=== PATIENT | female | born 1935 | race Caucasian/White ===

== ENCOUNTER 2016-12-13 22:58 | Inpatient (IN) | payer OTHER ==
--- NOTE | ~2016-12-13 | CT72 ---
[facility] A Service [facility] RADIOLOGY TEXT RESULTS PATIENT: GORDON PATEL LOCATION: CEDOF : 37 UNIT #: [id number] AGE: [address]: Inocencia Quijano MD SEX: F ORDER DR: [id number] [facility] [address] [place], [place] [address] [id number] I MR#: [id number] Acc #: [id number] NAME: GORDON PATEL : 1935 SEX: F STUDY DATE/TIME: 12/13/2016 21:46 UNIT: CEDOF ROOM: 19713 STUDY DESCRIPTION: CT Head Wo Contrast Stroke Attending Physician: Inocencia Quijano M.D. Ordering Physician: José Antonio Ivory M.D. Primary Care Physician: Ruperto Hoyos M.D. MEDICAL IMAGING REPORT This report is preliminary unless electronic signature is present EXAM CT brain without contrast. HISTORY Left side weakness and numbness today. TECHNIQUE NOTE: This CT exam was performed with one or more of the following radiation dose reduction techniques: automatic exposure control, adjustment of mA and/or kV according to patient size, and iterative reconstruction. FINDINGS CT brain without contrast demonstrates no intracranial hemorrhage, mass or edema. No midline shift or ventricular dilatation or extraaxial fluid collection. Bhzj-jf-aspufvje chronic ischemic changes in the deep white matter bilaterally. Small chronic lacunar infarcts in the basal ganglia. Small chronic infarct in the posterior left occipital lobe. Extensive mucosal thickening in the right maxillary sinus. IMPRESSION 1. No acute findings. 2. Yqdo-tj-dprgdexi chronic ischemic changes in the deep white matter bilaterally and small chronic bilateral basal ganglia lacunar infarcts. 3. Extensive mucosal thickening in the right maxillary sinus. Dictated by... Kenneth Holder M.D. [facility] A Service [facility] RADIOLOGY TEXT RESULTS PATIENT: GORDON PATEL LOCATION: CEDOF : 37 UNIT #: [id number] AGE: [address]: Inocencia Quijano MD SEX: F ORDER DR: THIS IS AN ELECTRONICALLY VERIFIED REPORT Kenneth Samia Holder M.D. at 12/14/2016 11:10 PM FATOU/susan TD: 12/13/2016 22:23 JOB #: [id number] MEDICAL IMAGING REPORT Page 1 of 1 COPY
--- NOTE | ~2016-12-13 | CT71 ---
[facility] A Service of [facility] RADIOLOGY TEXT RESULTS PATIENT: GORDON PATEL LOCATION: [facility] 324-01 : 37 UNIT #: [id number] AGE: [address]: Inocencia Quijano MD SEX: F ORDER DR: [id number] [facility] [address] [place], [place] [address] [id number] I MR#: [id number] Acc #: [id number] NAME: GORDON PATEL. : 1935 SEX: F STUDY DATE/TIME: 12/14/2016 23:26 UNIT: [address] ROOM: [facility] STUDY DESCRIPTION: CT Head Wo Contrast Attending Physician: Inocencia Quijano M.D. Ordering Physician: Lilly Garcia M.D. Primary Care Physician: Ruperto Hoyos M.D. MEDICAL IMAGING REPORT This report is preliminary unless electronic signature is present EXAM CT head, noncontrast, 12/14/2016. HISTORY 81-year-old female admitted through the ED yesterday with clinical stroke symptoms. Left side weakness, facial droop. Exam today for followup. TECHNIQUE CT examination of the head without IV contrast. This CT exam was performed with one or more of the following radiation dose reduction techniques: automatic control, adjustment of mA and/or kV according to patient size, and iterative reconstruction. FINDINGS No acute intracranial abnormality is demonstrated. Patchy low-attenuation white matter changes are nonspecific but likely related to chronic microvascular disease. Old lacunar infarct in the right lentiform nucleus. Small chronic posterior cortical infarct in the left occipital lobe. These findings are stable since yesterday. No evidence of intracranial hemorrhage, mass, mass effect, acute cerebral edema or hydrocephalus. Fluid and mucosal thickening within the right maxillary sinus and mild mucosal thickening in the ethmoid sinuses. IMPRESSION 1. No acute intracranial abnormality. 2. Diffuse chronic changes as noted above. 3. No change since yesterday. Dictated by... Blake Garcia M.D. [facility] A Service [facility] RADIOLOGY TEXT RESULTS PATIENT: GORDON PATEL LOCATION: [facility] 324-01 : 37 UNIT #: [id number] AGE: [address]: Inocencia Quijano MD SEX: F ORDER DR: THIS IS AN ELECTRONICALLY VERIFIED REPORT Blake Garcia M.D. at 12/15/2016 9:51 PM SUSANNA/raul TD: 12/15/2016 00:19 JOB #: [id number] MEDICAL IMAGING REPORT Page 1 of 1 COPY
--- NOTE | ~2016-12-13 | HP ---
Unit #: [id number] #: [id number] Patient: GORDON PATEL [id number] [address] [address] [id number] I MR#: [id number] NAME: GORDON PATEL ROOM: 21872 Age: 81 Sex: F Admission Date: 12/14/2016 : 1935 Attending Physician: Inocencia Quijano M.D. Primary Care Physician: Ruperto Hoyos M.D. HISTORY AND PHYSICAL REASON FOR ADMISSION CVA. HISTORY OF PRESENT ILLNESS The patient is a 81-year-old female who, 40 minutes prior to being evaluated in the emergency room, began developing left-sided weakness as well as left-sided facial droop. She was seen and evaluated in the emergency room and, after extensive review and discussion with Dr. Garcia, the patient actually received TPA through the night. Initial NIH score was 10 with minor left facial droop, left arm, left leg as well as ataxia times two limbs and slurred speech. The patient received TPA after evaluation and discussion with Dr. Garcia. At the present time, the patient is currently comfortable. She does have some residual facial droop but she currently denies pain. PAST MEDICAL HISTORY Recent ventral hernia repair, December 03, 2016, syncope, history of Downs, chronic lung disease on two liters home O2 followed by Dr. Reis, hypertension, hypothyroidism, hysterectomy, recent hospital admission, December 06, 2016, secondary to dyspnea, type 2 diabetes, hyperlipidemia, chronic osteoarthritis, GERD. PAST SURGICAL HISTORY Tubal ligation, left knee replacement, right knee replacement, cholecystectomy. SOCIAL HISTORY The patient resides at home. No alcohol use. No tobacco use. No illicit drug use. FAMILY HISTORY Reviewed, noncontributory, nonpertinent. ALLERGIES Codeine, aspirin. HOME MEDICATIONS 1. Ramipril. 2. Hydrochlorothiazide. 3. Lipitor. 4. Pravastatin. Unit #: [id number] #: [id number] Patient: GORDON PATEL 5. Naproxen. 6. Metformin. 7. Carvedilol. 8. Clonidine. REVIEW OF SYSTEMS Please see HPI. Twelve point otherwise negative except for those positive noted in the HPI. PHYSICAL EXAMINATION GENERAL APPEARANCE: A 81-year-old female morbidly obese lying comfortably. Residual facial droop noted. No acute distress. VITAL SIGNS: Temperature 98.5. Pulse 73. Respiratory rate 20. Blood pressure 136/39. HEENT: Head: Atraumatic. Pupils equal, round and reactive to light. NECK: Supple. No JVD or carotid bruit. CARDIOVASCULAR: S1, S2 without murmur. RESPIRATORY: Clear. GASTROINTESTINAL/ABDOMEN: Nontender, nondistended. EXTREMITIES: Lower extremities nontender. No edema. NEUROLOGIC: Alert and oriented x4. No evidence of any focal nerve deficits. Cranial nerves II-XII: Facial palsy noted. Left facial droop noted. PSYCHIATRIC: Patient demonstrates normal mood and affect. DIAGNOSTIC STUDIES LABORATORY: Lactic acid 1.0. Initial urinalysis: 3+ protein, 1+ urobilinogen, otherwise, unremarkable. BMP: BUN 32, glucose 184, otherwise, unremarkable. LFTs normal. IMAGING: CT head without contrast stroke protocol shows mild to moderate chronic ischemic changes deep white matter bilaterally, chronic bilateral basal ganglia lacunar infarcts. CT angiogram head stroke protocol shows minimal plaque in both carotid bifurcations. Initial chest x-ray: Mild cardiomegaly. INITIAL ADMISSION DIAGNOSES 1. Left-sided weakness, probable acute CVA status post TPA. 2. Morbid obesity. 3. Hypertension. 4. Ataxia. 5. Diabetes history. 6. Immobility. PLAN Admission ICU secondary to TPA protocol which may be discontinued later on tonight at 2300 then telemetry floor. MRI/MRA brain pending. Stroke protocol initiated. Workup in progress per Dr. Garcia. Lipid profile including embolic workup may be needed in a.m. including echocardiogram/NIDHI. Symptom management including PT, OT evaluation and possible rehab placement pending above evaluation and further hospital course. Plans have been reviewed with patient as well as her daughter present at bedside. Dictated by Inocencia Quijano M.D. Unit #: [id number] #: [id number] Patient: GORDON PATEL ISN/bd TD: 12/14/2016 18:39 JOB #: [id number] HISTORY AND PHYSICAL Page 1 of 1 X Inocencia Quijano MD X HISTORY AND PHYSICAL
--- NOTE | ~2016-12-13 | CO ---
Unit #: [id number] #: [id number] Patient: GORDON PATEL [id number] [address] [place], [place] [address] [id number] Adams MR#: [id number] NAME: GORDON PATEL ROOM: 325 Age: 81 Sex: F Admission Date: 12/14/2016 : 1935 Attending Physician: Inocencia Quijano M.D. Primary Care Physician: Ruperto Hoyos M.D. Consultation Date: 12/14/2016 CONSULTATION REPORT ADDITIONAL REFERRING PHYSICIAN José Antonio Ivory M.D., ER physician. PRIMARY CARE PHYSICIAN Ruperto Hoyos M.D. REASON FOR CONSULTATION Stroke, post alteplase. PATIENT IDENTIFICATION This is a 81-year-old, right-handed white female, who is evaluated in room 225 in the ER and also via the [employer] robot. SOURCE OF INFORMATION The patient, family, and discussion with Dr. Ivory. PROBLEM LIST Based on previous records. 1. Hypertension. 2. Diabetes. 3. Possible GERD. 4. Tubal ligation. 5. Left knee replacement. 6. Right knee replacement. 7. Gallbladder surgery. 8. Hyperlipidemia. 9. Arthritis. HISTORY OF PRESENT ILLNESS This is a very pleasant 81-year-old right-handed white female, who actually came to the emergency room yesterday at 2138 hours. She was a code stroke. She came via EMS and the last time normal was around 9:00 p.m. Immediately code stroke was called and I was informed and I got on online and I saw the patient. The patient had measurable left-sided deficit. No any problem initially. Her blood pressure was very low, so we were looking to make sure there is no other reason for that and once a CT was done, she was given a bolus of fluids and CTA was done and it was decided to go for tPA. The case was discussed with the family via the nurses. There was concern about CTA quality. I did look at the images and distally the flow was okay and the patient was coughing, so it was supposed to be repeated. Unit #: [id number] #: [id number] Patient: GORDON PATEL The patient has significant left-sided weakness and unfortunately she has not improved much. Please refer to evaluation in documentation at appropriate places. No seizures. No migraines. No change in medication or other issues. No falls or injuries. I do not think anything has changed lately. PAST MEDICAL HISTORY As discussed above. PAST SURGICAL HISTORY As discussed above. ALLERGIES Codeine and aspirin. HOME MEDICATIONS Ramipril 10 mg, hydrochlorothiazide 25 mg, Lipitor 40 mg, pravastatin 40 mg, Naprosyn 500 mg b.i.d., metformin 850 mg p.o. b.i.d., carvedilol 25 mg p.o. b.i.d., clonidine. FAMILY HISTORY Coronary artery disease. SOCIAL HISTORY Apparently per records, the patient is . Denies tobacco, alcohol, or drug use. REVIEW OF SYSTEMS Mostly as discussed in history of present illness. No recent weight issues, fever, chills, rigor, or sweats. HEENT: No headaches. No double vision, earache, runny nose, or sore throat. CARDIOVASCULAR: No chest pain, clubbing, cyanosis, orthopnea, or palpitation. PULMONARY: No shortness of air, cough, or expectoration. GASTROINTESTINAL: No nausea, vomiting, diarrhea, or constipation. GENITOURINARY: No genitourinary symptom. EXTREMITIES: Extremity problems as discussed. BACK: No back problem. PSYCHIATRIC: No psychotic issue. NEUROLOGIC: Issue as discussed. No other hematologic, dermatologic, or endocrine problems known to me. PHYSICAL EXAMINATION VITAL SIGNS: Temperature 97.6, pulse 61, respirations 17, blood pressure 146/55, weight of 175 pounds. NEUROLOGIC: The patient is awake. She is alert. She is oriented. She can name. She can follow commands. No right or left confusion. No finger agnosia. Unit #: [id number] #: [id number] Patient: GORDON PATEL Cranial nerve examination demonstrates full reagan of vision to confrontation. Eye movements are conjugate. I did not see any ptosis. I did not see any nystagmus. Extraocular movements are intact. Pupils are round, reactive to light, and accommodation. Sensation on the face and scalp was normal. Significant left lower facial weakness. Tongue was midline. I could not visualize her oropharynx or uvula. Hearing was intact. Head turning was spontaneous. Motor examination, she is flaccid on the left side. I really did not see any movement whatsoever except for triple flexion in the left lower extremity. Right side seemed to be at least -5/5. Sensory examination intact for soft touch and pain sensation. It is important to note that she did not have any extinction. I could not get any reflexes. Toes are upgoing on the left side with possible triple flexion. Right side was downgoing. Coordination on the right was okay. Gait could not be evaluated. DIAGNOSTIC STUDIES LABORATORY RESULTS: Personally reviewed. Random glucose was 184, BUN was 32, protein was 5.4, albumin was 2.5. INR was 1.3. White count was 10.5, H and H of 12.1 and 36.9, platelet count was 185. Urinalysis showed nothing suggesting major infection type story. IMAGING STUDIES: Reviewed. IMPRESSION 1. Acute neurologic deficit likely stroke and could be subcortical, could be thrombotic. 2. Her risk factors, her age, hypertension, diabetes, and hyperlipidemia. PLAN I will do for further workup. She is post alteplase. We will do 24 hour protocol and will see how things go. She is not improved much and it is bothersome, but I talked to the daughter and she is very happy with the care and the promptness of everything and will follow our protocol. Please see our orders. Call me for any other questions, issues, or concerns. Further treatment will be based on how she does and what we find especially on the MRI and I will follow her. Dictated by... Sheryl German/clifford TD: 12/15/2016 02:04 JOB #: [id number] Unit #: [id number] #: [id number] Patient: GORDON PATEL CONSULTATION REPORT Page 1 of 1 X Lilly Garcia MD CONSULTATION REPORT
--- NOTE | ~2016-12-13 | DS ---
Unit #: [id number] #: [id number] Patient: GORDON PATEL [id number] [address] [place], [place] [address] [id number] I MR#: [id number] NAME: GORDON PATEL. ROOM: 324 Age: 81 Sex: F Admission Date: 12/14/2016 : 1935 Discharge Date: Attending Physician: Inocencia Quijano M.D. Primary Care Physician: Ruperto Hoyos M.D. DISCHARGE SUMMARY DATE OF ANTICIPATED DISCHARGE December 17, 2016 REASON FOR ADMISSION Acute CVA. HISTORY OF PRESENT ILLNESS/HOSPITAL COURSE The patient is a 81-year-old female initially evaluated in the emergency room with left-sided weakness and facial droop. Neurology consultation was obtained via telemedicine. Patient received TPA while she was in the emergency room. Initial NIH score was 10. Please see History and Physical for complete details. CT head without contrast was negative for acute process. A consultation was placed to neurology services and stroke protocol was initiated. On December 15, 2016, patient underwent MRI brain without contrast which did reveal acute infarcts in the left (1) junction, as well as right frontal lobe. A consultation was placed to Dr. Bolton for NIDHI. Patient was noted to have a grade 4 atheroma which was noted. Neurology services has recommended Lovenox bridge to therapeutic INR on Coumadin. Intense statin medication was also recommended. Secondary to profound weakness on the left side, physical and occupational therapy services both have recommended rehab at time of discharge. [facility] has been consulted. Patient's precertification is currently pending. Once it is cleared, patient will be transferred to [facility] for ongoing care. LDL 96, triglycerides 126, cholesterol 146. FINAL DISCHARGE DIAGNOSES 1. Acute cerebrovascular accident, status post tissue plasminogen activator. 2. Left-sided weakness. 3. 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 Unit #: [id number] #: [id number] Patient: GORDON PATEL 4. Hypothyroidism. 5. Hypertension. 6. Morbid obesity. 7. Type 2 diabetes. 8. Hyperlipidemia. 9. Chronic osteoarthritis. 10. Gastroesophageal reflux disease. FINAL DISCHARGE MEDICATIONS 1. Lovenox 1 mg/kg subcutaneous b.i.d. May discontinue when INR greater than 2. 2. Coumadin 5 mg p.o. daily. 3. Altace 10 mg p.o. daily. 4. Hydrochlorothiazide 25 mg p.o. daily. 5. Coreg 25 mg p.o. b.i.d. 6. Clonidine 0.3 mg p.o. b.i.d. 7. Lipitor 80 mg p.o. at bedtime. 8. Diflucan 150 mg p.o. daily. 9. Nystatin powder to affected areas. 10. Insulin NovoLog low-dose sliding scale with Accu-Cheks q.a.c. and at bedtime. 11. Levemir 8 units subcutaneous at bedtime. DISCHARGE CONDITION Stable. [facility]. Dictated by... Sheryl Anne/michele TD: 12/17/2016 21:24 JOB #: [id number] DISCHARGE SUMMARY Page 1 of 1 X Inocencia Quijano MD X DISCHARGE SUMMARY
--- NOTE | ~2016-12-13 | EKG ---
PATIENT: GORDON PATEL UNIT #: [id number] Ventricular Rate: 75 BPM Atrial Rate: 75 BPM P-R Interval: 240 ms QRS Duration: 152 ms Q-T Interval: 470 ms QTC Calculation(Bezet): 524 ms P [place]: 91 degrees Calculated R [place]: -59 degrees Calculated T [place]: 131 degrees Diagnosis Line: Sinus rhythm with 1st degree A-V block Diagnosis Line: Left axis deviation Diagnosis Line: Left bundle branch block Diagnosis Line: Abnormal ECG Diagnosis Line: When compared with ECG of 16-JUN-2009 09:29, Diagnosis Line: Fusion complexes are no longer Present Diagnosis Line: Premature atrial complexes are no longer Present Diagnosis Line: HI interval has increased Diagnosis Line: T wave inversion more evident in Lateral leads Diagnosis Line: Confirmed by STEPH ELENA, MERRY ([id number]) on 12/14/2016 Diagnosis Line: 6:30:33 PM INTERPRETING MD: STEPH ELENA
--- NOTE | ~2016-12-13 | CT18 ---
[facility] A Service of [facility] & [facility] RADIOLOGY TEXT RESULTS PATIENT: GORDON PATEL LOCATION: CEDOF 96803-04 : 37 UNIT #: [id number] AGE: [address]: Inocencia Quijano MD SEX: F ORDER DR: [id number] [facility] [address] [place], [place] [address] [id number] I MR#: [id number] Acc #: [id number] NAME: GORDON PATEL : 1935 SEX: F STUDY DATE/TIME: 12/13/2016 21:54 UNIT: CEDOF ROOM: 11282 STUDY DESCRIPTION: CT Angio Head Stroke Attending Physician: Inocencia Quijano M.D. Ordering Physician: José Antonio Ivory M.D. Primary Care Physician: Ruperto Hoyos M.D. MEDICAL IMAGING REPORT This report is preliminary unless electronic signature is present EXAM Head and neck CT angiogram 12/13/2016 HISTORY Left side weakness/numbness with inability to move for 40 minutes prior to arrival. Patient last seen normal at 9 p.m. TECHNIQUE Axial images were obtained through the head and neck following the IV administration of contrast. 3-D reformats were obtained. The study was repeated due to patient motion. No comparison CTA. FINDINGS Within the neck the vertebral arteries are codominant and widely patent. Minimal plaque is seen at the carotid bifurcations, but there is 0% stenosis by NASCET criteria. There is no evidence of carotid or vertebral dissection. Intracranially there is some atherosclerotic calcification in the carotid siphons, but there is no evidence of stenosis by NASCET criteria. No aneurysm is identified. There are bilateral origin exhibits coordinator. There is probably some mild atherosclerotic disease in the exhibits coordinator, but no significant stenosis is seen. The basilar artery is fairly normal in caliber and slightly irregular. The smaller caliber may be due to the anterior dominant circulation, but some component of atherosclerotic disease is also likely present. The major dural venous sinuses are patent. There is no evidence of a vascular malformation. There is degenerative disease in the cervical spine. There is some mucosal thickening in the right maxillary sinus. IMPRESSION 1. Minimal plaque in both carotid bifurcations. No evidence of stenosis in the neck by NASCET criteria. No carotid or vertebral dissection. 2. Intracranially, no focal flow limiting stenosis by NASCET criteria is STS. [facility] A Service of [facility] & [facility] RADIOLOGY TEXT RESULTS PATIENT: GORDON PATEL LOCATION: [facility] [address]7485-99 : 37 UNIT #: [id number] AGE: [address]: Inocencia Quijano MD SEX: F ORDER DR: seen, there is no vessel cut off. No aneurysm is seen or vascular malformation. There are bilateral origin exhibits coordinator. Slight irregularity of both exhibits coordinator as well as the basilar artery may be due to atherosclerotic disease, but again no focal significant lesions are seen. Dictated by... Romaine Patel Jr., M.D. THIS IS AN ELECTRONICALLY VERIFIED REPORT Romaine Patel Jr., M.D. at 12/14/2016 2:29 PM DIMPLE/breanna TD: 12/14/2016 08:10 JOB #: [id number] MEDICAL IMAGING REPORT Page 1 of 1 COPY
--- NOTE | ~2016-12-13 | CR72 ---
[facility] A Service of [facility] & [facility] RADIOLOGY TEXT RESULTS PATIENT: GORDON PATEL [facility] UNIT #: [id number] AGE: [address]: Inocencia Quijano MD SEX: F ORDER DR: [id number] [facility] [address] [place], [place] [address] [id number] MR#: [id number] Acc #: [id number] NAME: GORDON PATEL. : 1935 SEX: F STUDY DATE/TIME: 12/13/2016 22:28 UNIT: [facility] ROOM: STUDY DESCRIPTION: CR Chest Single View Portable Attending Physician: José Antonio Ivory M.D. Ordering Physician: José Antonio Ivory M.D. Primary Care Physician: Ruperto Hoyos M.D. MEDICAL IMAGING REPORT This report is preliminary unless electronic signature is present EXAM Chest x-ray 12/13/2016 HISTORY 81-year-old female complaining of shortness of air and weakness beginning today. TECHNIQUE AP portable chest x-ray. FINDINGS The examination shows mild cardiomegaly. Mild diffuse pulmonary interstitial prominence suggesting potential mild vascular congestion. No comparison studies here. Infiltrate or atelectasis in the left lateral lung base. Old ununited left proximal humerus fracture. Low lung volumes. IMPRESSION Mild cardiomegaly. Possible mild vascular congestion. Shallow lung expansion. Dictated by... Blake Garcia M.D. THIS IS AN ELECTRONICALLY VERIFIED REPORT Blake Garcia M.D. at 12/14/2016 5:57 AM SUSANNA/raul TD: 12/13/2016 23:33 JOB #: [id number] MEDICAL IMAGING REPORT Page 1 of 1 COPY
--- NOTE | ~2016-12-13 | CO ---
Unit #: [id number] #: [id number] Patient: GORDON PATEL [id number] [address] [place], [place] [address] [id number] MR#: [id number] NAME: GORDON PATEL ROOM: 02532 Age: 81 Sex: F Admission Date: 12/14/2016 : 1935 Attending Physician: Inocencia Quijano M.D. Primary Care Physician: Ruperto Hoyos M.D. CONSULTATION REPORT REASON FOR CONSULTATION Critical care management. CHIEF COMPLAINT Left-sided weakness. HISTORY OF PRESENT ILLNESS This patient has a past medical history of gastritis, type 2 diabetes, hypertension, likely obstructive sleep apnea, who presents with the complaint of left-sided weakness. It started last night and the patient has been admitted with impression of stroke. I am seeing the patient at bedside, currently awake, alert, denies any headache, blurry vision. No chest pain. The patient has left-sided weakness. PAST MEDICAL HISTORY Hypertension, diabetes mellitus. PAST SURGICAL HISTORY Bilateral knee replacement, tubal ligation. SOCIAL HISTORY Nonsmoker. No alcohol. No drug abuse. ALLERGIES Aspirin, codeine. Allergies have been reviewed. MEDICATIONS As per MAR, has been reviewed. PHYSICAL EXAMINATION VITAL SIGNS: Temperature 98. Pulse 87. Respiration 12. Blood pressure 130/70. NEUROLOGIC: Awake, alert, oriented. No neuro deficit. HEENT: PERRLA. NECK: Supple. No JVD. CHEST: Bilateral air entry. Bilateral mild rhonchi. GASTROINTESTINAL: Nontender. Soft. Bowel sounds positive. EXTREMITIES: No edema. NEUROLOGIC: She has a positive left-sided, left upper arm and left lower extremity weakness. DIAGNOSTIC STUDIES IMAGING: CT head showed no acute infiltrate. CT angio of the head was also done which showed minimal plaque in the carotid bifurcation. Chest Unit #: [id number] #: [id number] Patient: GORDON PATEL x-ray on admission showed mild cardiomegaly. ASSESSMENT AND PLAN Left-sided weakness, acute stroke, hypertension, diabetes mellitus, likely obstructive sleep apnea and plan is to admit the patient. Neuro check q.4 hours and Neurology consult, aspiration precaution, (1) blood pressure, GI and DVT prophylaxis. We will continue to monitor, keep NPO, swallow evaluation. I would like to thank you for your kind consideration to involve me in taking care of this patient. Dictated by... Sheryl Ruiz TD: 12/14/2016 18:03 JOB #: [id number] CONSULTATION REPORT Page 1 of 1 X Dorita Carmichael MD X CONSULTATION REPORT
--- NOTE | ~2016-12-13 | MR18 ---
[facility] A Service of [facility] RADIOLOGY TEXT RESULTS PATIENT: GORDON PATEL LOCATION: [facility] 324- : 37 UNIT #: [id number] AGE: [address]: Inocencia Quijano MD SEX: F ORDER DR: [id number] [facility] [address] [facility]. [place], [place] [address] [id number] I MR#: [id number] Acc #: [id number] NAME: OGRDON PATEL : 1935 SEX: F STUDY DATE/TIME: 12/15/2016 9:48 UNIT: [id number] PCU ROOM: [facility] STUDY DESCRIPTION: MR Brain Wo Contrast Attending Physician: Inocencia Quijano M.D. Ordering Physician: Lilly Garcia M.D. Primary Care Physician: Ruperto Hoyos M.D. MRI CENTER REPORT This report is preliminary unless electronic signature is present. EXAM MRI brain without contrast INDICATIONS Sudden onset left arm and left side weakness and facial droop on 12/13/2016. TPA administered 2100 hours on 12/13/2016. Follow up. PROCEDURE Multiplanar, multisequence MR imaging of the brain without administration of contrast. COMPARISON CT from 12/14/2016 FINDINGS Diffusion weighted imaging shows a 2.5 cm acute or early subacute infarct in the left parietooccipital junction. There is a 3.1 cm cortical based infarct in the high posteromedial right frontal lobe. There is no evidence for hemorrhage, significant mass effect, extraaxial collection or hydrocephalus. Background of moderately severe chronic small vessel ischemic change. Flow voids and major intracranial vessels are intact. Mucosal thickening right maxillary sinus. IMPRESSION 1. Acute or early subacute infarcts in the left parietooccipital junction and the right frontal lobe as above. There is no hemorrhage or significant mass effect. 2. Background of chronic small vessel ischemic change. Dictated by... Enmanuel Hall M.D. [facility] A Service [facility] RADIOLOGY TEXT RESULTS PATIENT: GORDON PATEL LOCATION: [facility] 324- : 37 UNIT #: [id number] AGE: [address]: Inocencia Quijano MD SEX: F ORDER DR: THIS IS AN ELECTRONICALLY VERIFIED REPORT Enmanuel Hall M.D. at 12/16/2016 9:42 AM Gabrielle TD: 12/15/2016 12:49 JOB #: [id number] MRI CENTER REPORT Page 1 of 1 COPY
[2016-12-13 22:10] LABS: POC - GFR >60.0 mL/min (>60)
[2016-12-13 22:36] LABS: BASOPHIL% 0.4 % (0-2.5); EOSINOPHIL# 0.2 X10e3 (0-0.7); EOSINOPHIL% 1.8 % (0.0-7.0); HEMATOCRIT 36.9 % (35.0-45.0); HEMOGLOBIN 12.1 gm/dL (12.0-16.0); LYMPHOCYTE% 9.8 % (17.0-45.0); MEAN CELL VOLUME 87.8 FL (83-96); MEAN CORPUSCULAR HEMOGLOBIN 28.9 PG (28-34); MEAN CORPUSCULAR HGB CONC 32.9 g/dL (30-36); MONOCYTE# 1.1 X10e3 (0-1.0); MONOCYTE% 10.4 % (3.0-12.0); NEUTROPHIL# 8.1 X10e3 (1.5-7.1); NEUTROPHIL% 77.6 % (40-75); PLATELET COUNT 185 X10e3 (140-420); RED CELL DISTRIBUTION WIDTH 13.9 % (11.0-15.5); WHITE BLOOD COUNT 10.5 X10e3 (4.0-10.5)
[2016-12-13 22:38] LABS: DIFF IND NO
[2016-12-13 22:50] LABS: INR 1.3; PARTIAL THROMBOPLASTIN TIME 25.2 SECONDS (23.5-31.3); PROTHROMBIN TIME (PATIENT) 13.3 SECONDS (9.6-11.5)
[2016-12-13 22:58] LABS: ALBUMIN SERUM 2.5 g/dL (3.5-5.0); BILIRUBIN, DIRECT 0.2 mg/dL (0.0-0.2); BILIRUBIN,INDIRECT 0.8 mg/dL (0.0-0.9); BUN/CREATININE RATIO 45.71; CALCIUM SERUM 7.8 mg/dL (8.4-10.2); CREATININE SERUM 0.7 mg/dL (0.6-1.4); GLOM FILT RATE Estimated 82.4 mL/min (>60); POTASSIUM 4.1 mmol/L (3.5-5.1); PROTEIN TOTAL SERUM 5.4 g/dL (6.0-8.3)
[~2016-12-13 22:58] MED LIST: ACTOS PO; CIPRO PO; CLONIDINE PO; CLONIDINE TOP; DYAZIDE 37.5/251 CAP PO; INDERAL LA PO; LISINOPRIL PO; LORTAB 5/500 TA1 TA1 PO; PHENERGAN PO; PROTONIX PO
[2016-12-13] MEDS ORDERED: RAMIPRIL10 MG PO (23:30)
[2016-12-13 23:31] LABS: URINE SOURCE CLEAN CATCH
[2016-12-13] MEDS ORDERED: HYDROCHLOROTHIA25 MG PO (23:31)
[2016-12-13] MEDS ORDERED: LIPITOR40 MG PO (23:31)
[2016-12-13] MEDS ORDERED: PRAVASTATIN SOD40 MG PO (23:31)
[2016-12-13] MEDS ORDERED: NAPROSYN500 MG PO (23:32)
[2016-12-13] MEDS ORDERED: METFORMIN HCL850 MG PO (23:39)
[2016-12-13 23:40] LABS: URINE APPEARANCE CLEAR; URINE BILIRUBIN NEG (NEG); URINE BLOOD NEG (NEG); URINE COLOR DK YELLOW; URINE GLUCOSE NEG (NEG); URINE KETONE TRACE (NEG); URINE LEUKOCYTE ESTERASE NEG (NEG); URINE NITRATE NEG (NEG); URINE PROTEIN 3+ (NEG); URINE SPECIFIC GRAVITY 1.042 (1.003-1.035)
[2016-12-13] MEDS ORDERED: CARVEDILOL25 M1 PO (23:40)
[2016-12-13] MEDS ORDERED: CLONIDINE HCL0.3 MG PO (23:40)
[2016-12-13 23:43] LABS: URINE BACTERIA AUWI NEG (NEGATIVE); URINE SQUAMOUS EPITHELIAL CELL OCC /[HPF]; UWBCS1 AUWI 0-2 (0-5)
[2016-12-13 23:53] LABS: CULTURE INDICATED? NO; URINE GRANULAR CAST 0-2 /[HPF]; URINE MUCUS PRESENT
[2016-12-15 01:18] LABS: CHOLESTEROL 146 mg/dL (0-200); HDL CHOLESTEROL 25 mg/dL (35-95); LDL CHOLESTEROL 96 mg/dL ([, -130]); LDL/HDL RATIO 4 RATIO (0-4); TRIGLYCERIDES 126 mg/dL (10-160)
[2016-12-15 08:09] LABS: BASOPHIL% 0.5 % (0-2.5); EOSINOPHIL# 0.2 X10e3 (0-0.7); EOSINOPHIL% 2.3 % (0.0-7.0); HEMATOCRIT 37.1 % (35.0-45.0); HEMOGLOBIN 12.2 gm/dL (12.0-16.0); LYMPHOCYTE# 1.5 X10e3 (1.0-3.5); LYMPHOCYTE% 16.4 % (17.0-45.0); MEAN CELL VOLUME 88.9 FL (83-96); MEAN CORPUSCULAR HEMOGLOBIN 29.2 PG (28-34); MEAN CORPUSCULAR HGB CONC 32.9 g/dL (30-36); MEAN PLATELET VOLUME 10.3 FL (6.5-11.5); MONOCYTE# 0.9 X10e3 (0-1.0); MONOCYTE% 9.3 % (3.0-12.0); NEUTROPHIL# 6.8 X10e3 (1.5-7.1); NEUTROPHIL% 71.5 % (40-75); PLATELET COUNT 175 X10e3 (140-420); RED BLOOD COUNT 4.17 X10e (3.90-5.30); RED CELL DISTRIBUTION WIDTH 13.6 % (11.0-15.5); WHITE BLOOD COUNT 9.4 X10e3 (4.0-10.5)
[2016-12-15 08:15] LABS: DIFF IND NO
[2016-12-15 08:22] LABS: ALBUMIN SERUM 2.2 g/dL (3.5-5.0); BILIRUBIN,TOTAL 0.8 mg/dL (0.2-2.0); CALCIUM SERUM 8.1 mg/dL (8.4-10.2); CREATININE SERUM 0.6 mg/dL (0.6-1.4); GLOM FILT RATE Estimated 86.7 mL/min (>60); POTASSIUM 3.9 mmol/L (3.5-5.1); PROTEIN TOTAL SERUM 4.9 g/dL (6.0-8.3)
[2016-12-17 04:32] LABS: INR 1.2; PROTHROMBIN TIME (PATIENT) 12.7 SECONDS (9.6-11.5)
[2016-12-17 04:40] LABS: CALCIUM SERUM 8.6 mg/dL (8.4-10.2); CREATININE SERUM 0.6 mg/dL (0.6-1.4); GLOM FILT RATE Estimated 86.7 mL/min (>60); POTASSIUM 3.9 mmol/L (3.5-5.1)
[2016-12-17 04:46] LABS: HEMATOCRIT 39.1 % (35.0-45.0); HEMOGLOBIN 12.9 gm/dL (12.0-16.0); MEAN CELL VOLUME 87.6 FL (83-96); MEAN CORPUSCULAR HGB CONC 33.1 g/dL (30-36); MEAN PLATELET VOLUME 10.2 FL (6.5-11.5); RED BLOOD COUNT 4.47 X10e (3.90-5.30); RED CELL DISTRIBUTION WIDTH 13.5 % (11.0-15.5); WHITE BLOOD COUNT 9.8 X10e3 (4.0-10.5)
[2016-12-18 06:23] LABS: HEMATOCRIT 39.5 % (35.0-45.0); HEMOGLOBIN 13.2 gm/dL (12.0-16.0); MEAN CELL VOLUME 86.5 FL (83-96); MEAN CORPUSCULAR HEMOGLOBIN 28.8 PG (28-34); MEAN CORPUSCULAR HGB CONC 33.3 g/dL (30-36); MEAN PLATELET VOLUME 9.8 FL (6.5-11.5); RED BLOOD COUNT 4.57 X10e (3.90-5.30); RED CELL DISTRIBUTION WIDTH 13.6 % (11.0-15.5); WHITE BLOOD COUNT 9.3 X10e3 (4.0-10.5)
[2016-12-18 06:24] LABS: INR 1.3; PROTHROMBIN TIME (PATIENT) 14.1 SECONDS (9.6-11.5)
== END 2016-12-18 18:09 | DRG 62 ==
LOC: CED 22:58 → CEDOF 12-14 02:05 → C3A PCU 12-15 01:50
PROVIDERS: Emergency Medicine; Family Medicine; Psychiatry & Neurology Neurology
PROC: 3E03317 Introduction of Other Thrombolytic into Peripheral Vein, Percutaneous Approach (ICD-10-PCS; principal; 2016-12-14)
PROC: B32GYZZ Computerized Tomography (CT Scan) of Bilateral Vertebral Arteries using Other Contrast (ICD-10-PCS; 2016-12-14)
PROC: B325YZZ Computerized Tomography (CT Scan) of Bilateral Common Carotid Arteries using Other Contrast (ICD-10-PCS; 2016-12-14)
PROC: B328YZZ Computerized Tomography (CT Scan) of Bilateral Internal Carotid Arteries using Other Contrast (ICD-10-PCS; 2016-12-14)
PROC: B246ZZ4 Ultrasonography of Right and Left Heart, Transesophageal (ICD-10-PCS; 2016-12-16)
DX: I63.9 Cerebral infarction, unspecified (principal); G81.04 Flaccid hemiplegia affecting left nondominant side; I11.0 Hypertensive heart disease with heart failure; I50.22 Chronic systolic (congestive) heart failure; Z99.81 Dependence on supplemental oxygen; Z90.49 Acquired absence of other specified parts of digestive tract; Z30.2 Encounter for sterilization; Z90.710 Acquired absence of both cervix and uterus; K21.9 Gastro-esophageal reflux disease without esophagitis; Z88.5 Allergy status to narcotic agent; Z88.6 Allergy status to analgesic agent; E11.9 Type 2 diabetes mellitus without complications; E78.5 Hyperlipidemia, unspecified; Z96.653 Presence of artificial knee joint, bilateral; E03.9 Hypothyroidism, unspecified; J98.4 Other disorders of lung; M19.90 Unspecified osteoarthritis, unspecified site; E66.01 Morbid (severe) obesity due to excess calories; G47.33 Obstructive sleep apnea (adult) (pediatric); G51.0 Bell's palsy; E66.9 Obesity, unspecified; Z68.29 Body mass index [BMI] 29.0-29.9, adult
CPT/HCPCS: 36415; 70450; 70496; 70498; 70551; 71010; 80048; 80053; 80061; 80076; 81003; 82565; 82947; 83036; 83605; 85025; 85027; 85610; 85730; 86140; 87040; 92507; 92523-GN; 92526; 92610; 93005; 93306; 93312; 94760; 96360; 97110; 97116; 97162; 97166; 97530; 97535; 99285; G8978-GP; G8979-GP; G8980-GP; G8987-GO; G8988-GO; G8996-GN; G8997-GN; J1650; J1815; J2250; J2997; J3010; Q9967

== ENCOUNTER 2017-04-11 11:42 | Inpatient (IN) | payer OTHER ==
[~2017-04-11] VITALS: Ht 149.9 cm; Wt 65.8 kg
--- NOTE | ~2017-04-11 | HP ---
Unit #: [id number] #: [id number] Patient: GORDON PATEL [id number] [address] [address] [id number] I MR#: [id number] NAME: GORDON PATEL. ROOM: 328 Age: 81 Sex: F Admission Date: 04/11/2017 : 1935 Attending Physician: Shae Sims M.D. Primary Care Physician: Ruperto Hoyos M.D. HISTORY AND PHYSICAL CHIEF COMPLAINT Vomiting blood. HPI The patient is a 81-year-old female with past medical history of gastritis, antral ulcers, cerebrovascular accident, grade 4 atheroma, chronic anticoagulation with Coumadin, hypertension, hyperlipidemia, GERD, Howard palsy, diabetes, osteoarthritis who presented to the emergency department for evaluation of the above. Of note, the patient was hospitalized at [facility] March 23 through March 27, 2017, for epistaxis. Admission to [facility] January 21, 2017, for GI bleed. She underwent EGD during that admission that showed small hiatal hernia, gastritis, and multiple antral ulcers. The patient states that she was in her usual state of health until the morning of admission when she had an episode of emesis. That was about 6:00 a.m. She had another bout of emesis around 10:00 a.m. when visiting nurses were at the home. They thought that it looked somewhat coffee ground in appearance and so sent the patient to the emergency department for further evaluation. The patient has not had any additional vomiting. She denies any abdominal pain. No fever. No cough or cold symptoms. No chest pain. No difficulty breathing. She denies blood in the stool or black tarry stool. In the emergency department, initial pulse and blood pressure were 78 and 134/76, respectively. She was Hemoccult negative. Hemoglobin is 13.1. INR was 8.4. She was given 5 mg of vitamin K p.o. as well as 40 mg of Protonix IV. Of note, the patient was on Coumadin for grade 4 atheroma noted at the time of stroke. The patient's primary care physician had changed her to Eliquis on January 13, 2017. The patient was then changed back to Coumadin after being hospitalized at [facility]. Family states that [facility] had checked the INR on April 08, 2017. It was 5 at that time. She was advised to hold Coumadin. The last Coumadin dose was on April 08, 2017. PAST MEDICAL HISTORY 1. Admission to [facility] March 23 through March 27, 2017, for epistaxis. 2. Admission to [facility] January 21, 2017, for GI bleed. She underwent EGD during that admission that showed small hiatal hernia, gastritis, and multiple antral ulcers. 3. Admission to [facility] December 14, 2016, for right Unit #: [id number] #: [id number] Patient: GORDON PATEL MCA cerebrovascular accident. She received TPA during that admission. She was also noted to have grade 4 atheroma and was discharged to rehab on Coumadin. 4. 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 5. Grade 4 atheroma on chronic anticoagulation with Coumadin. 6. History of Howard palsy. 7. Hypertension. 8. Hyperlipidemia. 9. GERD. 10. Diabetes. 11. Osteoarthritis. PAST SURGICAL HISTORY 1. Tubal ligation. 2. Bilateral knee surgery. 3. Cholecystectomy. 4. EGD with results as noted above. 5. Colonoscopy June 20, 2009, was normal. SOCIAL HISTORY The patient lives with her daughter. There is no tobacco or alcohol use. She is in a wheelchair. CODE STATUS The patient is a full code. FAMILY HISTORY Coronary artery disease. ALLERGIES Codeine and aspirin. HOME MEDICATIONS 1. Neurontin 300 mg at bedtime. 2. Coreg 3.125 mg twice daily. 3. Pantoprazole 40 mg daily. 4. Ramipril 1.25 mg daily. 5. Coumadin 2 mg at bedtime. Last dose was April 08, 2017. 6. Clonidine 0.3 mg twice daily. 7. PROzac 20 mg daily. 8. Iron 325 mg twice daily. 9. Metformin 850 mg twice daily. REVIEW OF SYSTEMS A complete review of systems is negative, except as indicated in the HPI. The patient has had decreased appetite for the past several months. DIAGNOSTIC TESTS LABORATORY: Complete blood count notable for hemoglobin and hematocrit of 13.1 and 40.1, respectively. INR is 8.4. Comprehensive metabolic panel notable for CO2 of 18; anion gap of 16; BUN and creatinine 46 and 2.2, respectively; albumin of 3.2. Lipase is 26. PHYSICAL EXAMINATION VITAL SIGNS: Temperature is 97.9, pulse 78, respirations 16, blood pressure 134/76, and oxygen saturation is 98% on room air. GENERAL: The patient is a female who is awake and alert. Unit #: [id number] #: [id number] Patient: GORDON PATEL HEENT: The head is atraumatic. Mucous membranes are moist. NECK: Supple. Trachea is midline. CARDIOVASCULAR: Regular rate and rhythm. LUNGS: Clear to auscultation bilaterally with no increased work of breathing. ABDOMEN: Soft and nontender with bowel sounds present in all four quadrants. RECTAL: Exam was heme-negative per ER documentation. EXTREMITIES: Nontender with no pedal edema. NEUROLOGIC: The patient is awake and alert. She does have left facial droop and left-sided weakness that are not new problems. PSYCH: Mood and affect are normal. The patient is cooperative. SKIN: Skin of examined areas is warm and dry. ASSESSMENT The patient is a 81-year-old female with: 1. Hematemesis by history. Hemoglobin is 13.1. Hemoccult was negative. The patient received Protonix in the emergency department. 2. Coumadin toxicity with an INR of 8.4. The patient received 5 mg of vitamin K. The patient is on Coumadin for grade 4 atheroma. 3. History of gastrointestinal bleed January 21, 2017. The patient had EGD at [facility] showing gastritis and multiple antral ulcers. 4. Acute kidney injury. The patient's creatinine was 0.6 on December 17, 2016. It is 2.2 today. She has had decreased appetite for the past several months. Additionally, she is on Ramipril as well as metformin, which could be contributing. 5. Anion gap metabolic acidosis with an anion gap of 16, likely secondary to renal issues. 6. Hyperkalemia with a potassium of 5.4. The patient is on ramipril, which could be contributing. 7. History of cerebrovascular accident with residual left-sided weakness and worsening of left facial droop. 8. Grade 4 atheroma on chronic anticoagulation with Coumadin. 9. Hypertension. 10. Hyperlipidemia. 11. Gastroesophageal reflux disease. 12. History of Howard palsy. 13. Diabetes. 14. Osteoarthritis. 15. Immobility. PLAN 1. Admit for observation to intermediate level. 2. Clear liquid diet if passes bedside swallow. 3. Normal saline at 75 mL an hour. 4. Protonix 40 mg IV daily. 5. Hemoglobin and hematocrit q.6 hours. 6. Get endoscopy report from [facility]. 7. Consult Dr. Acuña regarding hematemesis. 8. Check EKG and cardiac enzymes. 9. Hold Coumadin. 10. Fall precautions. 11. PT/OT to evaluate and treat. 12. Urinalysis with culture and sensitivity. 13. Low dose sliding insulin with Accu-Cheks. 14. Repeat BMP later this evening to follow up hyperkalemia and anion gap metabolic acidosis. 15. Hold ramipril and metformin, which could be contributing to acute Unit #: [id number] #: [id number] Patient: GORDON PATEL Claudia kidney injury. 16. Repeat labs in the morning including magnesium, phosphorus, and INR. 17. SCDs for DVT prophylaxis. 18. Additional workup and consultants based on above. Dictated by Sheryl Mcguire/angela TD: 04/12/2017 06:13 JOB #: [id number] HISTORY AND PHYSICAL Page 1 of 1 X Shae Sims MD X HISTORY AND PHYSICAL
--- NOTE | ~2017-04-11 | EKG ---
PATIENT: GORDON PATEL UNIT #: [id number] Ventricular Rate: 75 BPM Atrial Rate: 75 BPM P-R Interval: 212 ms QRS Duration: 160 ms Q-T Interval: 426 ms QTC Calculation(Bezet): 475 ms P [place]: 55 degrees Calculated R [place]: -54 degrees Calculated T [place]: 131 degrees Diagnosis Line: Sinus rhythm with 1st degree A-V block Diagnosis Line: Left axis deviation Diagnosis Line: Left bundle branch block Diagnosis Line: Abnormal ECG Diagnosis Line: No previous ECGs available Diagnosis Line: Confirmed by ASAD COFFEY MD ([id number]) on Diagnosis Line: 04/13/2017 4:43:06 PM INTERPRETING MD: ALICIA
--- NOTE | ~2017-04-11 | CO ---
Unit #: [id number] #: [id number] Patient: GORDON PATEL [id number] [place], [place] [address] [id number] I MR#: [id number] NAME: GORDON PATEL. ROOM: 313 Age: 81 Sex: F Admission Date: 04/11/2017 : 1935 Attending Physician: Inocencia Quijano M.D. Primary Care Physician: Ruperto Hoyos M.D. CONSULTATION REPORT PRIMARY CARE PHYSICIAN Ruperto Hoyos M.D. REASON FOR CONSULTATION Vomiting blood. HISTORY Ms. Patel is a 81-year-old rather frail, petite, white woman. She lives at home with her daughter and her family. Ended up coming to the hospital after vomiting blood according to the daughter. She was visited by the home health nurse, who also noticed the same. The patient denies any history of additional vomiting. She has abdominal pain. There is no history of fever, chills, or rigors. There is no history of any black tarry stools. Upon admission, she was found to be Coumadin toxic with an INR of 8.0. She was therefore given vitamin K. PAST MEDICAL HISTORY Significant for history of stroke in the right middle cerebral artery territory, grade 4 atheroma on chronic anticoagulation with Coumadin history of Howard palsy, hypertension, hyperlipidemia, GERD, diabetes, and osteoarthrosis. PAST SURGICAL HISTORY Included tubal ligation, cholecystectomy, and bilateral knee surgery. MEDICATIONS At home included the following; Coumadin, clonidine, Prozac, iron, metformin, ramipril, pantoprazole, Coreg, and Neurontin. ALLERGIES She is allergic to codeine and aspirin. FAMILY HISTORY Coronary artery disease. No family history of colon, pancreatic cancer, or liver disease. SOCIAL HISTORY The patient lives at home with her daughter. Does not smoke or drink alcohol. She is confined to a wheelchair. REVIEW OF SYSTEMS Detailed review of organ systems does not reveal any recent weight loss. No history of fever, chills, or rigors. No history of headache, seizures, chest pain, or syncope. No history of cough, expectoration, or Unit #: [id number] #: [id number] Patient: GORDON PATEL hemoptysis. No history of dysuria, hematuria, or pyuria. No history of focal seizures or extremity weakness. PHYSICAL EXAMINATION GENERAL: She is frail, alert and oriented, and pale. VITAL SIGNS: Stable with a temperature of 98.0, pulse is 74 per minute and regular, respiratory rate is 19, and blood pressure is 99/59. HEENT: She has mild pallor. There being no icterus, lymphadenopathy, or peripheral edema. CARDIOVASCULAR: Normal heart sounds. No murmurs. LUNGS: Auscultation over the lungs reveals normal breath sounds. Good air entry. ABDOMEN: Soft and nontender. Liver and spleen are not palpable. Bowel sounds normal. DIAGNOSTIC STUDIES LABORATORY RESULTS: Shows hemoglobin was 13.1 yesterday and today it is 11.3. In addition, her INR was 8.4, and the patient has gotten vitamin K. BUN and creatinine is 46 and 2.1 with a baseline of these are 18 and 0.6. CO2 is 18, albumin is 2.5, and LFTs are normal. We do not have iron B12 folate studies. CLINICAL IMPRESSION The patient most likely has upper gastrointestinal bleed, substantial blood loss is less likely, however, she does have underlying renal disease. Whether this is most likely an acute kidney injury. An upper endoscopy is warranted and will be scheduled for tomorrow. The pros and cons of procedure and potential risks and complications were discussed with the patient's family and they were reassured. Thank you for asking me to see this pleasant woman. I appreciate the consult. Dictated by... Sheryl Forbes/clifford TD: 04/14/2017 01:19 JOB #: [id number] CONSULTATION REPORT Page 1 of 1 X Avery Acuña MD CONSULTATION REPORT
--- NOTE | ~2017-04-11 | OR ---
Unit #: [id number] #: [id number] Patient: GORDON PATEL [id number] [facility]. [place], [place] [address] [id number] MR#: [id number] NAME: GORDON PATEL. ROOM: 328 Date of Procedure: 04/13/2017 Admission Date: 04/11/2017 Surgeon: Avery Acuña M.D. : 1935 Attending Physician: Inocencia Quijano M.D. Primary Care Physician: Ruperto Hoyos M.D. OPERATIVE REPORT PRIMARY CARE PHYSICIAN Ruperto Hoyos M.D. PREOPERATIVE DIAGNOSES Upper gastrointestinal bleed. The patient has presented with a history of emesis with coffee-grounds emesis and hematemesis. PROCEDURES PERFORMED Upper gastrointestinal endoscopy and biopsy. POSTOPERATIVE DIAGNOSES 1. Mild distal antral nonerosive gastritis. This was primarily in the form of diffuse erythema. 2. Small hiatus hernia. 3. Distal esophageal Schatzki ring. The latter was felt to be wide open not requiring dilation. 4. Rest of the examination up to third part of duodenum was normal. RECOMMENDATIONS 1. Discontinue IV Protonix and start the patient on Protonix 40 mg p.o. daily. 2. She can be started on regular diet and can be discharged home from GI standpoint. SEDATION USED Conscious sedation, a total of 4 mg Versed was used throughout the procedure. DESCRIPTION OF PROCEDURE Following detailed explanation of potential risks and complications of an upper endoscopy, namely perforation, bleeding, complications related to sedation, the patient was brought to GI lab and laid in the left lateral decubitus position. Lubricated tip of the Olympus video upper endoscope was passed through bite block into the proximal esophagus under direct vision. The entire esophageal mucosa was examined. The patient was noted to have distal esophageal Schatzki ring, which was felt to be wide open not requiring dilation. The scope was then advanced in the gastric cavity and the latter was insufflated. Mucosa of the fundus, body, and antrum examined. Mild diffuse prepyloric antral erythema was noted. There being no erosions or ulcers. Pylorus was intubated with visualization of normal duodenal bulb and second and third part of the duodenum. Upon withdrawal and retroflexion, incisura, cardia, and greater curve examined and no Unit #: [id number] #: [id number] Patient: GORDON PATEL additional findings noted. Biopsies obtained from the antrum for CLOtest. The scope was withdrawn in the distal esophagus. The entire esophageal mucosa was examined all the way up to pharynx. No additional findings noted. The patient tolerated the procedure without any postprocedure complications. Dictated by... Sheryl Forbes/clifford TD: 04/13/2017 10:08 JOB #: [id number] CC: Sheryl Anne M.D. OPERATIVE REPORT Page 1 of 1 X Avery Acuña MD X PROCEDURE OPERATIVE NOTE
[~2017-04-11 11:42] MED LIST changes: +CARVEDILOL25 M1 PO; +CLONIDINE HCL0.3 MG PO; +HYDROCHLOROTHIA25 MG PO; +LIPITOR40 MG PO; +METFORMIN HCL850 MG PO; +NAPROSYN500 MG PO; +PRAVASTATIN SOD40 MG PO; +RAMIPRIL10 MG PO
[2017-04-11] MEDS ORDERED: PANTOPRAZOLE SO40 MG PO (12:29)
[2017-04-11] MEDS ORDERED: NEURONTIN100 MG PO (12:29)
[2017-04-11] MEDS ORDERED: COREG3.125 M1 PO (12:29)
[2017-04-11] MEDS ORDERED: PATIENT'S PHARMACY (12:29)
[2017-04-11] MEDS ORDERED: PROZAC10 M1 PO (12:30)
[2017-04-11] MEDS ORDERED: COUMADIN PO (12:30)
[2017-04-11] MEDS ORDERED: CLONIDINE HCL0.3 MG PO (12:30)
[2017-04-11] MEDS ORDERED: FERRO-TIME325 MG PO (12:30)
[2017-04-11] MEDS ORDERED: ALTACE PO (12:30)
[2017-04-11] MEDS ORDERED: METFORMIN PO (12:32)
[2017-04-11 14:13] LABS: BASOPHIL# 0.1 X10e3 (0-0.3); BASOPHIL% 0.8 % (0-2.5); EOSINOPHIL# 0.2 X10e3 (0-0.7); EOSINOPHIL% 2.8 % (0.0-7.0); HEMATOCRIT 40.1 % (35.0-45.0); HEMOGLOBIN 13.1 gm/dL (12.0-16.0); LYMPHOCYTE# 2.1 X10e3 (1.0-3.5); LYMPHOCYTE% 24.6 % (17.0-45.0); MEAN CELL VOLUME 88.4 FL (83-96); MEAN CORPUSCULAR HEMOGLOBIN 28.9 PG (28-34); MEAN CORPUSCULAR HGB CONC 32.7 g/dL (30-36); MEAN PLATELET VOLUME 9.3 FL (6.5-11.5); MONOCYTE# 0.7 X10e3 (0-1.0); MONOCYTE% 7.8 % (3.0-12.0); NEUTROPHIL# 5.4 X10e3 (1.5-7.1); PLATELET COUNT 341 X10e3 (140-420); RED BLOOD COUNT 4.54 X10e (3.90-5.30); RED CELL DISTRIBUTION WIDTH 16.5 % (11.0-15.5); WHITE BLOOD COUNT 8.5 X10e3 (4.0-10.5)
[2017-04-11 14:27] LABS: DIFF IND NO
[2017-04-11 14:49] LABS: INR 8.4; PROTHROMBIN TIME (PATIENT) 91.7 SECONDS (10.0-11.7)
[2017-04-11 15:12] LABS: ALBUMIN SERUM 3.2 g/dL (3.5-5.0); BILIRUBIN, DIRECT 0.2 mg/dL (0.0-0.2); BILIRUBIN,INDIRECT 0.4 mg/dL (0.0-0.9); BILIRUBIN,TOTAL 0.6 mg/dL (0.2-2.0); BUN/CREATININE RATIO 20.9; CREATININE SERUM 2.2 mg/dL (0.6-1.4); GLOM FILT RATE Estimated 20.6 mL/min (>60); POTASSIUM 5.4 mmol/L (3.5-5.1); PROTEIN TOTAL SERUM 6.8 g/dL (6.0-8.3)
[2017-04-11 17:37] LABS: HEMATOCRIT 37.7 % (35.0-45.0); HEMOGLOBIN 12.3 gm/dL (12.0-16.0)
[2017-04-11 18:37] LABS: URINE SOURCE CLEAN CATCH
[2017-04-11 18:44] LABS: URINE APPEARANCE CLOUDY; URINE BILIRUBIN NEG (NEG); URINE BLOOD NEG (NEG); URINE COLOR YELLOW; URINE GLUCOSE NEG (NEG); URINE KETONE TRACE (NEG); URINE LEUKOCYTE ESTERASE 1+ (NEG); URINE NITRATE NEG (NEG); URINE PROTEIN TRACE (NEG); URINE SPECIFIC GRAVITY 1.014 (1.003-1.035); URINE UROBILINOGEN 0.2 MG/DL (NEG)
[2017-04-11 18:47] LABS: CULTURE INDICATED? YES; URBCS1 AUWI 0-2 /[HPF] (0-2); URINE BACTERIA AUWI 4+ (NEGATIVE); URINE SQUAMOUS EPITHELIAL CELL NONE SEEN /[HPF]
[2017-04-11 19:04] LABS: BUN/CREATININE RATIO 19.16; CALCIUM SERUM 8.6 mg/dL (8.4-10.2); CREATININE SERUM 2.4 mg/dL (0.6-1.4); GLOM FILT RATE Estimated 18.6 mL/min (>60); POTASSIUM 4.8 mmol/L (3.5-5.1)
[2017-04-11 19:19] LABS: MAGNESIUM 0.9 mg/dL (1.6-3.0); PHOSPHOROUS 3.2 mg/dL (2.5-4.6)
[2017-04-12 00:02] LABS: HEMATOCRIT 34.3 % (35.0-45.0); HEMOGLOBIN 11.3 gm/dL (12.0-16.0)
[2017-04-12 00:17] LABS: MAGNESIUM 1.4 mg/dL (1.6-3.0)
[2017-04-12 12:06] LABS: BASOPHIL# 0.1 X10e3 (0-0.3); BASOPHIL% 0.7 % (0-2.5); EOSINOPHIL# 0.2 X10e3 (0-0.7); EOSINOPHIL% 2.7 % (0.0-7.0); HEMATOCRIT 35.7 % (35.0-45.0); HEMOGLOBIN 11.4 gm/dL (12.0-16.0); LYMPHOCYTE# 1.5 X10e3 (1.0-3.5); LYMPHOCYTE% 17.2 % (17.0-45.0); MEAN CORPUSCULAR HEMOGLOBIN 28.7 PG (28-34); MEAN CORPUSCULAR HGB CONC 31.9 g/dL (30-36); MEAN PLATELET VOLUME 8.7 FL (6.5-11.5); MONOCYTE# 0.6 X10e3 (0-1.0); MONOCYTE% 7.3 % (3.0-12.0); NEUTROPHIL# 6.4 X10e3 (1.5-7.1); NEUTROPHIL% 72.1 % (40-75); PLATELET COUNT 279 X10e3 (140-420); RED BLOOD COUNT 3.96 X10e (3.90-5.30); WHITE BLOOD COUNT 8.8 X10e3 (4.0-10.5)
[2017-04-12 12:07] LABS: DIFF IND NO
[2017-04-12 12:21] LABS: INR 1.8
[2017-04-12 12:24] LABS: PROTHROMBIN TIME (PATIENT) 19.4 SECONDS (10.0-11.7)
[2017-04-12 12:38] LABS: ALBUMIN SERUM 2.5 g/dL (3.5-5.0); BILIRUBIN,TOTAL 1.7 mg/dL (0.2-2.0); BUN/CREATININE RATIO 20.95; CALCIUM SERUM 8.5 mg/dL (8.4-10.2); CREATININE SERUM 2.1 mg/dL (0.6-1.4); GLOM FILT RATE Estimated 21.8 mL/min (>60); POTASSIUM 4.9 mmol/L (3.5-5.1); PROTEIN TOTAL SERUM 5.1 g/dL (6.0-8.3)
[2017-04-12 17:55] LABS: HEMATOCRIT 31.9 % (35.0-45.0); HEMOGLOBIN 10.4 gm/dL (12.0-16.0)
[2017-04-13 06:36] LABS: HEMATOCRIT 35.1 % (35.0-45.0); HEMOGLOBIN 11.1 gm/dL (12.0-16.0); MEAN CELL VOLUME 91.5 FL (83-96); MEAN CORPUSCULAR HEMOGLOBIN 28.9 PG (28-34); MEAN CORPUSCULAR HGB CONC 31.6 g/dL (30-36); MEAN PLATELET VOLUME 8.6 FL (6.5-11.5); RED BLOOD COUNT 3.83 X10e (3.90-5.30); RED CELL DISTRIBUTION WIDTH 16.9 % (11.0-15.5); WHITE BLOOD COUNT 14.3 X10e3 (4.0-10.5)
[2017-04-13 18:32] LABS: HEMATOCRIT 32.3 % (35.0-45.0); HEMOGLOBIN 10.9 gm/dL (12.0-16.0)
[2017-04-13 18:46] LABS: HEMATOCRIT 32.5 % (35.0-45.0); HEMOGLOBIN 10.9 gm/dL (12.0-16.0); MEAN CORPUSCULAR HEMOGLOBIN 29.5 PG (28-34); MEAN CORPUSCULAR HGB CONC 33.5 g/dL (30-36); RED BLOOD COUNT 3.68 X10e (3.90-5.30); WHITE BLOOD COUNT 10.2 X10e3 (4.0-10.5)
[2017-04-13 18:47] LABS: MEAN CELL VOLUME 88.1 FL (83-96)
[2017-04-13] MEDS ORDERED: REGLAN10 MG PO (22:26)
[2017-04-13] MEDS ORDERED: MAGOX 400400 MG PO (22:27)
[2017-04-14 04:51] LABS: MAGNESIUM 1.3 mg/dL (1.6-3.0); POTASSIUM 3.7 mmol/L (3.5-5.1)
[2017-04-14 04:56] LABS: HEMATOCRIT 28.1 % (35.0-45.0); HEMOGLOBIN 9.5 gm/dL (12.0-16.0); MEAN CELL VOLUME 87.9 FL (83-96); MEAN CORPUSCULAR HEMOGLOBIN 29.7 PG (28-34); MEAN CORPUSCULAR HGB CONC 33.8 g/dL (30-36); RED BLOOD COUNT 3.19 X10e (3.90-5.30); RED CELL DISTRIBUTION WIDTH 16.1 % (11.0-15.5); WHITE BLOOD COUNT 7.4 X10e3 (4.0-10.5)
[2017-04-14 05:18] LABS: INR 1.2; PROTHROMBIN TIME (PATIENT) 13.3 SECONDS (10.0-11.7)
[2017-04-14 17:26] LABS: HEMATOCRIT 33.1 % (35.0-45.0); HEMOGLOBIN 11.2 gm/dL (12.0-16.0)
[2017-04-15 04:53] LABS: HEMATOCRIT 32.8 % (35.0-45.0); HEMOGLOBIN 11.1 gm/dL (12.0-16.0); MEAN CELL VOLUME 87.6 FL (83-96); MEAN CORPUSCULAR HEMOGLOBIN 29.5 PG (28-34); MEAN CORPUSCULAR HGB CONC 33.7 g/dL (30-36); MEAN PLATELET VOLUME 9.1 FL (6.5-11.5); RED BLOOD COUNT 3.75 X10e (3.90-5.30); RED CELL DISTRIBUTION WIDTH 16.7 % (11.0-15.5); WHITE BLOOD COUNT 7.9 X10e3 (4.0-10.5)
[2017-04-15 05:07] LABS: INR 1.2; PROTHROMBIN TIME (PATIENT) 12.9 SECONDS (10.0-11.7)
[2017-04-16 08:13] LABS: INR 1.3; PROTHROMBIN TIME (PATIENT) 14.5 SECONDS (10.0-11.7)
[2017-04-16] MEDS ORDERED: ACETAMINOPHEN650 M3 PO (11:10)
[2017-04-16] MEDS ORDERED: TOPROL XL PO (11:10)
[2017-04-16] MEDS ORDERED: BACTRIM DS TAB1 EACH PO (11:11)
[2017-04-16] MEDS ORDERED: AMARYL2 MG PO (11:11)
[2017-04-16 11:21] LABS: BASOPHIL# 0.1 X10e3 (0-0.3); BASOPHIL% 0.7 % (0-2.5); EOSINOPHIL# 0.4 X10e3 (0-0.7); EOSINOPHIL% 4.8 % (0.0-7.0); HEMATOCRIT 37.1 % (35.0-45.0); HEMOGLOBIN 12.2 gm/dL (12.0-16.0); LYMPHOCYTE# 2.2 X10e3 (1.0-3.5); LYMPHOCYTE% 27.1 % (17.0-45.0); MEAN CELL VOLUME 87.9 FL (83-96); MEAN CORPUSCULAR HEMOGLOBIN 28.9 PG (28-34); MEAN CORPUSCULAR HGB CONC 32.9 g/dL (30-36); MEAN PLATELET VOLUME 9.8 FL (6.5-11.5); NEUTROPHIL# 4.4 X10e3 (1.5-7.1); NEUTROPHIL% 54.4 % (40-75); PLATELET COUNT 274 X10e3 (140-420); RED BLOOD COUNT 4.22 X10e (3.90-5.30); RED CELL DISTRIBUTION WIDTH 16.4 % (11.0-15.5); WHITE BLOOD COUNT 8.1 X10e3 (4.0-10.5)
[2017-04-16 11:28] LABS: DIFF IND NO
[2017-04-16 11:29] LABS: BUN/CREATININE RATIO 23.75; CALCIUM SERUM 8.3 mg/dL (8.4-10.2); CREATININE SERUM 0.8 mg/dL (0.6-1.4); GLOM FILT RATE Estimated 70.2 mL/min (>60)
== END 2017-04-16 14:15 | disposition home health service (06) | DRG 378 ==
LOC: CED 11:42 → C3A PCU 16:45 → CEDOF 16:45 → CED 17:13 → CEDOF 17:13 → C3A PCU 18:42 → CEDOF 04-12 11:00 → CED 04-12 11:00 → C3A PCU 04-13 06:34
PROVIDERS: Emergency Medicine; Family Medicine; Internal Medicine Gastroenterology
PROC: 0DB78ZX Excision of Stomach, Pylorus, Via Natural or Artificial Opening Endoscopic, Diagnostic (ICD-10-PCS; principal; 2017-04-13 06:40)
DX: K92.0 Hematemesis (principal); N17.9 Acute kidney failure, unspecified; E87.2 Acidosis; E87.5 Hyperkalemia; K22.2 Esophageal obstruction; N39.0 Urinary tract infection, site not specified; Z16.12 Extended spectrum beta lactamase (ESBL) resistance; D64.9 Anemia, unspecified; G51.0 Bell's palsy; I10 Essential (primary) hypertension; E11.9 Type 2 diabetes mellitus without complications; T45.515A Adverse effect of anticoagulants, initial encounter; Y92.9 Unspecified place or not applicable; K29.70 Gastritis, unspecified, without bleeding; K44.9 Diaphragmatic hernia without obstruction or gangrene; I70.90 Unspecified atherosclerosis; M19.90 Unspecified osteoarthritis, unspecified site; E78.5 Hyperlipidemia, unspecified; K21.9 Gastro-esophageal reflux disease without esophagitis; Z90.49 Acquired absence of other specified parts of digestive tract; Z96.653 Presence of artificial knee joint, bilateral; Z98.51 Tubal ligation status; Z86.73 Personal history of transient ischemic attack (TIA), and cerebral infarction without residual deficits; Z88.6 Allergy status to analgesic agent; Z88.5 Allergy status to narcotic agent; Z82.49 Family history of ischemic heart disease and other diseases of the circulatory system
CPT/HCPCS: 36415; 80048; 80053; 80076; 81003; 82550; 82947; 83690; 83735; 84100; 84132; 84484; 85014; 85018; 85025; 85027; 85610; 87077; 87086; 87088; 87186; 93005; 97110; 97116; 97162; 97166; 97530; 97535; 99285; C9113; G8978-GP; G8979-GP; G8987-GO; G8988-GO; J0696; J1815; J2185; J2250; J3010; J3475

== ENCOUNTER 2017-04-20 10:05 | Emergency (ER) | payer OTHER ==
[~2017-04-20] VITALS: Ht 152.4 cm; Wt 59.9 kg
--- NOTE | ~2017-04-20 | EKG ---
PATIENT: GORDON PATEL UNIT #: [id number] Ventricular Rate: 76 BPM Atrial Rate: 76 BPM P-R Interval: 222 ms QRS Duration: 154 ms Q-T Interval: 460 ms QTC Calculation(Bezet): 517 ms P [place]: 71 degrees Calculated R [place]: 41 degrees Calculated T [place]: 159 degrees Diagnosis Line: Sinus rhythm with PAC's with 1st degree A-V block Diagnosis Line: Left bundle branch block Diagnosis Line: Abnormal ECG Diagnosis Line: When compared with ECG of 11-APR-2017 17:36, Diagnosis Line: QRS axis Shifted right Diagnosis Line: T wave inversion now evident in Anterior leads Diagnosis Line: Confirmed by ASAD COFFEY MD ([id number]) on Diagnosis Line: 04/21/2017 5:00:11 PM INTERPRETING MD: ALICIA
[~2017-04-20 10:05] MED LIST changes: +ACETAMINOPHEN650 M3 PO; +ALTACE PO; +AMARYL2 MG PO; +BACTRIM DS TAB1 EACH PO; +COREG3.125 M1 PO; +COUMADIN PO; +FERRO-TIME325 MG PO; +MAGOX 400400 MG PO; +METFORMIN PO; +NEURONTIN100 MG PO; +PANTOPRAZOLE SO40 MG PO; +PATIENT'S PHARMACY; +PROZAC10 M1 PO; +REGLAN10 MG PO; +TOPROL XL PO
[2017-04-20 12:00] LABS: URINE SOURCE CLEAN CATCH
[2017-04-20 12:07] LABS: ALBUMIN SERUM 2.5 g/dL (3.5-5.0); BILIRUBIN, DIRECT 0.1 mg/dL (0.0-0.2); BILIRUBIN,INDIRECT 0.3 mg/dL (0.0-0.9); BILIRUBIN,TOTAL 0.4 mg/dL (0.2-2.0); BUN/CREATININE RATIO 17.69; CREATININE SERUM 1.3 mg/dL (0.6-1.4); PROTEIN TOTAL SERUM 5.5 g/dL (6.0-8.3)
[2017-04-20 12:09] LABS: URINE APPEARANCE CLEAR; URINE BILIRUBIN NEG (NEG); URINE BLOOD NEG (NEG); URINE COLOR YELLOW; URINE GLUCOSE 100 MG/DL (NEG); URINE KETONE NEG (NEG); URINE LEUKOCYTE ESTERASE 3+ (NEG); URINE NITRATE NEG (NEG); URINE PH 5.5 (5-8); URINE PROTEIN NEG (NEG); URINE SPECIFIC GRAVITY 1.008 (1.003-1.035); URINE UROBILINOGEN 0.2 MG/DL (NEG)
[2017-04-20 12:10] LABS: POTASSIUM 5.5 mmol/L (3.5-5.1)
[2017-04-20 12:12] LABS: CULTURE INDICATED? YES; URBCS1 AUWI 0-2 /[HPF] (0-2); URINE BACTERIA AUWI NEG (NEGATIVE); URINE SQUAMOUS EPITHELIAL CELL NONE SEEN /[HPF]; UWBCS1 AUWI 100-200 (0-5)
[2017-04-20 13:39] LABS: BASOPHIL% 0.3 % (0-2.5); EOSINOPHIL# 0.2 X10e3 (0-0.7); EOSINOPHIL% 2.5 % (0.0-7.0); HEMATOCRIT 36.6 % (35.0-45.0); HEMOGLOBIN 12.3 gm/dL (12.0-16.0); LYMPHOCYTE# 1.4 X10e3 (1.0-3.5); LYMPHOCYTE% 19.1 % (17.0-45.0); MEAN CELL VOLUME 88.3 FL (83-96); MEAN CORPUSCULAR HEMOGLOBIN 29.6 PG (28-34); MEAN CORPUSCULAR HGB CONC 33.6 g/dL (30-36); MEAN PLATELET VOLUME 8.2 FL (6.5-11.5); MONOCYTE# 0.6 X10e3 (0-1.0); MONOCYTE% 8.6 % (3.0-12.0); NEUTROPHIL# 5.2 X10e3 (1.5-7.1); NEUTROPHIL% 69.5 % (40-75); PLATELET COUNT 316 X10e3 (140-420); RED BLOOD COUNT 4.15 X10e (3.90-5.30); RED CELL DISTRIBUTION WIDTH 17.1 % (11.0-15.5); WHITE BLOOD COUNT 7.5 X10e3 (4.0-10.5)
[2017-04-20 13:53] LABS: DIFF IND NO; INR 1.5; PARTIAL THROMBOPLASTIN TIME 30.3 SECONDS (23.5-31.3); PROTHROMBIN TIME (PATIENT) 16.7 SECONDS (10.0-11.7)
== END 2017-04-20 14:42 | disposition home or self-care (01) ==
LOC: CED 10:05
PROVIDERS: Emergency Medicine
DX: E10.649 Type 1 diabetes mellitus with hypoglycemia without coma (principal); E87.1 Hypo-osmolality and hyponatremia; K21.9 Gastro-esophageal reflux disease without esophagitis; Z86.73 Personal history of transient ischemic attack (TIA), and cerebral infarction without residual deficits; I10 Essential (primary) hypertension; Z88.6 Allergy status to analgesic agent; Z88.5 Allergy status to narcotic agent; Z79.84 Long term (current) use of oral hypoglycemic drugs; Z79.899 Other long term (current) drug therapy
CPT/HCPCS: 36415; 51701; 80048; 80076; 81003; 82947; 85025; 85610; 85730; 87086; 93005; 96361; 96365; 99284; J2185